=== PATIENT | female | born 1950 | race Caucasian/White ===

== ENCOUNTER 2017-04-24 15:00 | Inpatient (IN) | payer MEDICARE, BC ==
[2017-05-08] MEDS ORDERED: MECLIZINE 25 MG TABLET PO ONE (06:00)
[2017-05-08] MEDS ORDERED: CEFAZOLIN 2 Gram 2 GM/50 ML BAG IVPB ONE (06:00)
[2017-05-08] MEDS ORDERED: CELECOXIB 100 MG CAPSULE PO ONE (06:00)
[2017-05-08] MEDS ORDERED: VANCOMYCIN HCL 1,000 MG in 0.9 % SODIUM CHLORIDE 250ML 250 ML IVPB ONE (06:00)
[2017-05-08] MEDS ORDERED: FAMOTIDINE 20MG TABLET PO ONE (06:00)
[2017-05-08] MEDS ORDERED: METOCLOPRAMIDE 10 MG TABLET PO ONE (06:00)
[2017-05-08 08:05] LABS: ABO GROUP O; ANTIBODY SCREEN NEGATIVE (NEGATIVE); RH TYPE POSITIVE
[2017-05-08] MEDS ORDERED: TRANEXAMIC ACID 1,000 MG/10 ML ML IV ONE ×2 (09:19→14:00)
[2017-05-08] MEDS ORDERED: 0.9 % SODIUM CHLORIDE 10 ML VIAL IVP ONE (09:19)
[2017-05-08] MEDS ORDERED: BUPIVACAINE 0.5% W/EPI MPF 30 ML VIAL IVP ONE (09:19)
[2017-05-08] MEDS ORDERED: HYDROMORPHONE HCL 2 MG/ML VIAL IM PRN (11:25)
[2017-05-08] MEDS ORDERED: MAGNESIUM HYDROXIDE 30 ML UDC PO PRN (11:25)
[2017-05-08] MEDS ORDERED: AL HYDROX/MAG HYDROX 30ML UD PO PRN (11:25)
[2017-05-08] MEDS ORDERED: KETOROLAC 30 MG/ML VIAL IVP PRN ×2 (11:25)
[2017-05-08] MEDS ORDERED: ACETAMINOPHEN 325 MG TAB PO PRN (11:25)
[2017-05-08] MEDS ORDERED: BISACODYL 10 MG SUPP RC PRN (11:25)
[2017-05-08] MEDS ORDERED: DIPHENHYDRAMINE HCL 25 MG CAPSULE PO PRN (11:25)
[2017-05-08] MEDS ORDERED: HYDROMORPHONE HCL 1MG/ML **SYRINGE IM PRN (11:25)
[2017-05-08] MEDS ORDERED: HYDROCODONE/APAP 10/325 TABLET PO PRN (11:25)
[2017-05-08] MEDS ORDERED: NALOXONE 0.4 MG/1 ML VIAL IVP PRN (11:25)
[2017-05-08] MEDS ORDERED: ONDANSETRON HCL IV 4 MG/2 ML VIAL IVP PRN (11:25)
[2017-05-08] MEDS ORDERED: ACETAMINOPHEN W/ CODEINE 300MG/60MG TABLET PO PRN ×2 (11:25)
[2017-05-08] MEDS ORDERED: POTASSIUM CHLORIDE/D5-0.9%NACL 20 MEQ/1,000 ML BAG IV SCH (12:30)
[2017-05-08] MEDS ORDERED: EPHEDRINE SULFATE 50 MG/ML ML IV ONE (14:00)
[2017-05-08] MEDS ORDERED: PROPOFOL 10 MG/ML VIAL IV ONE (14:00)
[2017-05-08] MEDS ORDERED: MIDAZOLAM HCL 2MG/2ML VIAL IV ONE (14:00)
[2017-05-08] MEDS ORDERED: FENTANYL PF 100MCG/2ML VIAL IV ONE (14:00)
[2017-05-08] MEDS ORDERED: *PACU ONLY* KETAMINE HCL 10 MG/ML (20ML) VIAL IV ONE (14:00)
[2017-05-08] MEDS ORDERED: HYDROMORPHONE HCL 2 MG/ML VIAL IV ONE (14:00)
[2017-05-08] MEDS ORDERED: KETOROLAC 30 MG/ML VIAL IVP ONE (14:00)
[2017-05-08] MEDS ORDERED: PHENYLEPHRINE HCL 10 MG/ML VIAL IVP ONE (14:00)
[2017-05-08] MEDS: CEFAZOLIN 2 Gram 2 GM/50 ML BAG IVPB SCH (16:19)
--- NOTE | 2017-05-08 16:33 | Rehab Evaluation ---
Patient Information - Patient Information Diagnosis: L knee DJD Ordered Treatment: PT Evaluate and Treat Status: Initial Evaluation Surgery: Yes Date of Surgery: 05/08/17 Past Medical/Surgical Hx: PAST MEDICAL/SURGICAL HISTORY Surgery to Affected Area? No Recent Surgery? Past Surgical History 2004 left knee scope 1980 tubal ligation PMH - Respiratory Hx Respiratory Disorders No PMH - Cardiovascular Hx Cardiovascular Disorders Yes Hx Abnormal EKG Yes: Hx asymptomatic bradycardia Exercise Tolerance Fair PMH - Neuro Hx Neurological Disorders No PMH - GI Hx Gastrointestinal Disorders Yes Hx Gastroesophageal Reflux Yes: Controlled on Nexium Hx Hiatal Hernia Yes Hx Irritable Bowel Yes: with constipation. Controlled on Amitiza PMH - Hx Genitourinary Disorders Yes Hx Age of Menopause 50 Patient No Hx Bladder Problem Yes: OAB- on Tobiaz PMH - Endocrine Hx Endocrine Disorders Yes Hx Diabetes No Hx Thyroid Disease Yes: hypothyroid-on Synthroid PMH - Musculoskeletal Hx Musculoskeletal Disorders Yes Hx Arthritis Yes: Arthritis knees, shoulders, hands, generalized Hx Musculoskeletal Disease Yes: Restless leg syndrome controlled on Mirapex PMH - Psych Hx Psychiatric Problems Yes Hx Depression Yes: Controlled on Effexor PMH - Hematology/Oncology Hx Hematology/Oncology Yes Disorders Hx Anemia Yes: hgb 8.2 Hx Bruising Yes: Bruises very easily Premorbid Status: Detail (The patient was independent with ambulation.) Social History: Detail (The patient lives alone in a two story home with bathroom and bedroom on the first floor. The patient's sister is staying with her while she recovers from surgery. The patient's bathroom is equipped with a walk in shower with a tub seat and grab bars, and a toilet with a riser seat. The patient has a standard walker) Precautions: [place], Other (WBAT on the L LE.) - Time With Patient Total Time Spent With Patient (Min): 30 Treatment Procedures: Detail (Initial Evaluation, Gait training and review of HEP: the patient completed ankle pumps, quad sets , hamstring sets, gluteal sets all x 5 reps, SLR and heel slides x 3 reps.) Subjective Information - Subjective Information Per Patient (The patient has no complaints of L knee pain.) Objective Data - Mental Status Patient Orientation: Oriented x3 - Visual Perception Appears within normal limits for therapeutic activities - ROM Not within normal limits (The patient's L knee extension was 0 degrees and flexion aproximately 80 degrees.) - Strength/Tone Not within normal limits (The patient's UE strength was generally 4+to 5/5 throughout. The patient's R LE strength was 4+ to 5/5. The patient's L LE strength was not formally tested secondary to S/P surgery, however her strength was functional ie: she was able to lift L LE SLR.) - Bed Mobility Independent (The patient was independent with supine to and from sit transfer, hooking R LE under L LE and with scooting up in bed.) - Transfers Independent (The patient was independent with sit to and from stand transfer and toilet transfer.) - Balance Balance Sitting: Good Balance Standing: Good - Gait Detail (The patient ambulated with standard walker a distance of 11 feet x 2 WBAT on the L LE with CG for safety and verbal cues for proper technique of walker use.) Therapy Assessment - Therapy Assessment Detail (The patient was independent with bed mobility transfer and HEP. Feel the patient will progress well with ambulation on stairs. Anticipate the patient will meet PT inpatient goals in 1 to 2 PT sessions.) Problem List - Problem List Physical Therapy Problem List: Detail (1) Decreased L knee AROM and decreased strength as to be expected following TKA. 2) CG with ambulation, inability to ambulate on stairs.) Goals - Goals Physical Therapy Goals: 1)The patient will be independent with ambulation with assistive device on levels and stairs WBAT on the L LE. 2) Independent with HEP progression. Prognosis - Prognosis Good Plan - Plan Physical Therapy Plan: PT 1 to 2 times a day for gait training until all PT inpatient goals have been met.
[2017-05-08] MEDS: PRAMIPEXOLE DI-HCL 0.25 MG TABLET PO SCH ×2 (17:47→22:41)
[2017-05-08] MEDS: DOCUSATE SODIUM 100 MG CAPSULE PO SCH (22:41)
[2017-05-08] MEDS: AMITIZA 8 MCG PO SCH (22:42)
[2017-05-08] MEDS: PATIENT OWN MED: ATORVASTATIN 40 MG PO SCH (22:42)
[2017-05-08] MEDS: VENLAFAXINE 75 MG PO SCH (22:42)
[2017-05-08] MEDS: ZOLPIDEM TARTRATE 5 MG TABLET PO PRN (22:42)
[2017-05-09] MEDS: CEFAZOLIN 2 Gram 2 GM/50 ML BAG IVPB SCH ×2 (00:26→10:29)
[2017-05-09] MEDS: HYDROCODONE/APAP 10/325 TABLET PO PRN ×4 (03:54→20:32)
[2017-05-09] MEDS: PATIENT OWN MED: LEVOTHYROXINE 25 MCG PO SCH (06:55)
[2017-05-09] MEDS: ESOMEPRAZOLE 20 MG PO SCH (06:55)
[2017-05-09 06:58] LABS: HEMATOCRIT 21.9 % (35.0-47.0)
[2017-05-09 07:11] LABS: BLOOD UREA NITROGEN 17 mg/dL (8-23); CREATININE 0.8 mg/dL (0.5-0.9); EST GLOMERULAR FILTRATION RATE > 60 mL/min; GLUCOSE,RANDOM 102 mg/dL (74-109)
[2017-05-09 07:31] LABS: IMMED. SPIN CROSSMATCH COMPATIBLE
--- NOTE | 2017-05-09 08:09 | Operative Note ---
DATE: 05/08/2017. PREOPERATIVE DIAGNOSIS: End-stage arthrosis of the left knee. POSTOPERATIVE DIAGNOSIS: End-stage arthrosis of the left knee. PROCEDURE: Cemented left total knee arthroplasty using Iyer [employer] Nephew Kianna with two components with a size 3 Oxinium femur, size 3 stemmed tibia base plate, a 9.0 mm lift Highly Crosslinked tibial insert, and a size 32 all- plastic patella. STAFF SURGEON: Leeroy Villafana M.D. ANESTHESIA: Spinal. PREPARATION: ChloraPrep. INDIVIDUAL CONSIDERATIONS: None. PROCEDURE: The patient was taken to the operating room and placed supine on the operating table. She had the successful induction of a spinal anesthetic. Her left lower extremity was prepped and draped in the usual fashion. The limb was elevated and the tourniquet was inflated to 250 mmHg. The patient had a midline approach to the knee. Sharp dissection was carried down through the skin and subcutaneous tissue. The small veins were coagulated with a Bovie. The medial arthrotomy was performed. The patella was everted and the knee was flexed. She had [id number] contact with bone loss medially and in the patellofemoral compartments. The fat pad was resected and the ACL was sacrificed. Provisional anterior meniscectomies were performed, and the capsule was released from the medial proximal tibia. Initial femoral marine pilot hole was then made freehand. Intramedullary femoral cutting jig was placed. It was cut in 7.0 degrees of valgus, adjusted for rotation, and secured with pins. The initial transverse cut was made. Skin guide was placed at the anterior and posterior marine pilot holes, and it was found that a size 3 would be appropriate. In order to get it to fit, I needed to translate it anteriorly 2.0 mm. I did this with the anterior translation block. The anterior and posterior cuts were made followed by chamfer cuts, and osteophytes were removed. A size 4 trial was placed and was found to fit well. The tibia was brought forward, and the remainder of the meniscal remnants were removed with a Bovie. The extra-articular tibia cutting jig was placed, and it was cut in neutral with a 3-degree AP slope. Care was taken to adjust the rotation and flexion using the extra-articular alignment guide and Bovie landmarks. It was set for a 9.0-mm resection and keyed off the high lateral side and secured with pins, and then cautery of the tibia. Care was taken to preserve the PCL insertion on the tibia. After removing osteophytes, I was able to fit a size 3. The size 3 was adjusted for rotation and secured with pins. With a 9.0-mm trial as a femoral trial, there was excellent motion and stability. Ligamentous balance, rotation, alignment, and patellofemoral tracking at this point were even normal. Femoral marine pilot holes were impacted, and the triflange tibial stamp was impacted, and these trial components were removed. I removed roughly 9.0 mm of bone off the patella which had about 21 to 22 mm of bone. I then was able to fit a 32 patella, and three marine pilot holes were then drilled. The knee was then thoroughly irrigated out with pulsatile Betadine and saline to remove any visual or palpable debris. The tourniquet was let down, bleeders were coagulated posteriorly, and hemostasis was obtained. The tourniquet was then placed back up again. Again, after thorough irrigation, the bony surfaces were dried. A size [address] was cemented into place, followed by impaction of a 9.0 mm lift tibial insert, followed by cementing of a size 3 Oxinium femur followed by cementing of a 32 mm all-plastic patella. Implant surfaces were compressed and excess cement was removed. After the cement had set, there were excellent motion and stability. Ligamentous balance, rotation alignment, and patellofemoral tracking were normal. The tourniquet was let down and hemostasis was obtained with the Bovie. After irrigation, the capsule was then closed with running #2 Quill, subcu was closed with running #0 Quill in layers, and the skin was closed with rubia. Prior to closure, I did infiltrate the skin and periosteum with 30 cc of 0.5% Marcaine with epinephrin. After closure, I then mixed 1.0 gm of tranexamic acid with 30 cc of saline and injected this into the knee. She did receive 1.0 gm of tranexamic acid IV preoperatively. The patient tolerated the procedure well. Needle and sponge counts were correct. Estimated blood loss was less than 50 cc. She was taken back to Recovery in good condition. There were no complications. cc: Chay Neville M.D. BOBBI
[2017-05-09] MEDS: FERROUS SULFATE 325 MG TAB PO SCH (09:32)
[2017-05-09] MEDS: DOCUSATE SODIUM 100 MG CAPSULE PO SCH ×2 (09:32→22:06)
[2017-05-09] MEDS: RIVAROXABAN 10 MG TABLET PO SCH (09:32)
[2017-05-09] MEDS: ASPIRIN 81 MG TABEC PO SCH (09:32)
[2017-05-09] MEDS: TOVIAZ 8 MG PO SCH (09:35)
[2017-05-09] MEDS: VENLAFAXINE 75 MG PO SCH ×2 (09:35→22:07)
[2017-05-09] MEDS: AMITIZA 8 MCG PO SCH ×2 (09:35→22:07)
[2017-05-09 10:27] LABS: IMMED. SPIN CROSSMATCH COMPATIBLE
[2017-05-09 11:51] LABS: % SATURATION 4 % (20-50)
--- NOTE | 2017-05-09 12:07 | Physical Therapy Tx Note ---
Physical Therapy Tx Note - Treatment Note Tolerated: Good Total Time Spent With Patient: 20 Physical Therapy Tx Note: Detail (The patient was up in a chair when PT arrived. The patient ambulated 80 feet x 1 with standard walker, WBAT on the L LE with supervision for safety only. The patient requested to return to bed. The patient was independent with supine to and from sit transfer. Ice was replaced on the patient's knee, call light was within reach.) Physical Therapy Problem List: Detail (1) Decreased L knee AROM and decreased strength as to be expected following TKA. 2) CG with ambulation, inability to ambulate on stairs.) Physical Therapy Goals: 1)The patient will be independent with ambulation with assistive device on levels and stairs WBAT on the L LE. 2) Independent with HEP progression. Physical Therapy Plan: PT 1 to 2 times a day for gait training until all PT inpatient goals have been met.
[2017-05-09] MEDS: TRAMADOL HCL 50 MG TABLET PO PRN (13:48)
--- NOTE | 2017-05-09 14:33 | Rehab Evaluation ---
Patient Information - Patient Information Diagnosis: L knee DJD Ordered Treatment: OT Evaluate and Treat Status: Initial Evaluation Surgery: Yes Date of Surgery: 05/08/17 Past Medical/Surgical Hx: PAST MEDICAL/SURGICAL HISTORY Surgery to Affected Area? No Recent Surgery? Past Surgical History 2004 left knee scope 1980 tubal ligation PMH - Respiratory Hx Respiratory Disorders No PMH - Cardiovascular Hx Cardiovascular Disorders Yes Hx Abnormal EKG Yes: Hx asymptomatic bradycardia Exercise Tolerance Fair PMH - Neuro Hx Neurological Disorders No PMH - GI Hx Gastrointestinal Disorders Yes Hx Gastroesophageal Reflux Yes: Controlled on Nexium Hx Hiatal Hernia Yes Hx Irritable Bowel Yes: with constipation. Controlled on Amitiza PMH - Hx Genitourinary Disorders Yes Hx Age of Menopause 50 Patient No Hx Bladder Problem Yes: OAB- on Tobiaz PMH - Endocrine Hx Endocrine Disorders Yes Hx Diabetes No Hx Thyroid Disease Yes: hypothyroid-on Synthroid PMH - Musculoskeletal Hx Musculoskeletal Disorders Yes Hx Arthritis Yes: Arthritis knees, shoulders, hands, generalized Hx Musculoskeletal Disease Yes: Restless leg syndrome controlled on Mirapex PMH - Psych Hx Psychiatric Problems Yes Hx Depression Yes: Controlled on Effexor PMH - Hematology/Oncology Hx Hematology/Oncology Yes Disorders Hx Anemia Yes: hgb 8.2 Hx Bruising Yes: Bruises very easily Premorbid Status: Detail (The patient was independent with ambulation, and all ADLs/IADLs.) Social History: Detail (The patient lives alone in a two story home with bathroom and bedroom on the first floor. The patient's sister is staying with her while she recovers from surgery. The patient's bathroom is equipped with a tub/shower combo with a tub seat and grab bars, and a toilet with a riser seat. Pt sits to shower. The patient has a standard walker.) Precautions: [place], Other (WBAT on the L LE.) - Time With Patient Total Time Spent With Patient (Min): 25 Treatment Procedures: Detail (Eval low OT) Subjective Information - Subjective Information Per Patient Objective Data - Pain Pain Present: Yes (L knee) Pain Intensity: 3 Pain Scale Used: Numeric (1 - 10) - Mental Status Patient Orientation: Oriented x3 - Visual Perception Appears within normal limits for therapeutic activities (wears glasses.) - ROM Within normal limits (BUE's) - Strength/Tone Within normal limits (WNL BUE's pt grossly 4+ to 5/5) - Coordination Appears within normal limits for therapeutic activities - Bed Mobility Independent - Transfers Independent - Gait Detail (SBA w/ 2WW to go from head of bed to foot of bed and back to head of bed.) - ADL's/IADL's Detail (Pt ind. w/ bra and LS shirt don sitting EOB. Educated and demo'd understanding of drsg techniques. Pt required max A to thread underwear & pants over feet then Ind. to pull above knee and up over hips in standing. Pt unable to reach to thread pants 2^ pain and pants getting caught on equipment. Pt also experienced increased wheezing throughout ADL session requiring 3 RBs. Pt states that her sister will assist her with dressing until she can do it independenly. Discussed use of leasing property manager should pt cont to struggle with drsg while at home.) Therapy Assessment - Therapy Assessment Detail (Pt was instructed and demo'd understanding of drsg techniques. She was ind. w/ bed mob. and t/f's and was SBA for ambulation within room. But did show increased "wheezing" during ADL session requiring 3 RBs to perform breathing techniques. Pt required assistance for LB drsg but states that sister will be able to assist her with drsg. Also, discussed use of leasing property manager for LB drsg should this cont to be a problem. Pt will follow-up with home OT.) Problem List - Problem List Physical Therapy Problem List: Detail (1) Decreased L knee AROM and decreased strength as to be expected following TKA. 2) CG with ambulation, inability to ambulate on stairs.) Goals - Goals Physical Therapy Goals: 1)The patient will be independent with ambulation with assistive device on levels and stairs WBAT on the L LE. 2) Independent with HEP progression. Prognosis - Prognosis Good Plan - Plan Physical Therapy Plan: PT 1 to 2 times a day for gait training until all PT inpatient goals have been met. Occupational Therapy Plan: Do not anticipate patient needing further inpatient OT but recommend her to follow up on drsg techniques with home OT.
--- NOTE | 2017-05-09 15:27 | Physical Therapy Tx Note ---
Physical Therapy Tx Note - Treatment Note Tolerated: Good Total Time Spent With Patient: 15 Physical Therapy Tx Note: Detail (Patient states 7/10 pain in left knee. Patient declined ambulation and stair climbing due to sitting up in chair for a while and has been walking a lot. Patient performed the following exercises: SLR x10, heel slides x2, ankle pumps x10, ankle circles x10, quad sets x10, glut squeezes x10, hamstring sets x10, and SAQ x10. Patient tolerated treatment well. Patient was left supine in bed with cryo and call light within reach.) Physical Therapy Problem List: Detail (1) Decreased L knee AROM and decreased strength as to be expected following TKA. 2) CG with ambulation, inability to ambulate on stairs.) Physical Therapy Goals: 1)The patient will be independent with ambulation with assistive device on levels and stairs WBAT on the L LE. 2) Independent with HEP progression. Prognosis: Good Physical Therapy Plan: PT 1 to 2 times a day for gait training until all PT inpatient goals have been met.
[2017-05-09] MEDS: PRAMIPEXOLE DI-HCL 0.25 MG TABLET PO SCH ×2 (17:45→22:06)
[2017-05-09] MEDS: ZOLPIDEM TARTRATE 5 MG TABLET PO PRN (22:04)
[2017-05-09] MEDS: PATIENT OWN MED: ATORVASTATIN 40 MG PO SCH (22:07)
[2017-05-10] MEDS: TRAMADOL HCL 50 MG TABLET PO PRN (02:15)
[2017-05-10 06:19] LABS: HEMATOCRIT 28.1 % (35.0-47.0); HEMOGLOBIN 8.6 gm/dl (11.6-16.0)
[2017-05-10 06:38] LABS: BLOOD UREA NITROGEN 13 mg/dL (8-23); CREATININE 0.6 mg/dL (0.5-0.9); EST GLOMERULAR FILTRATION RATE > 60 mL/min; GLUCOSE,RANDOM 99 mg/dL (74-109)
[2017-05-10] MEDS: ESOMEPRAZOLE 20 MG PO SCH (06:56)
[2017-05-10] MEDS: PATIENT OWN MED: LEVOTHYROXINE 25 MCG PO SCH (06:57)
[2017-05-10] MEDS: DOCUSATE SODIUM 100 MG CAPSULE PO SCH (09:33)
[2017-05-10] MEDS: ASPIRIN 81 MG TABEC PO SCH (09:33)
[2017-05-10] MEDS: AMITIZA 8 MCG PO SCH (09:33)
[2017-05-10] MEDS: RIVAROXABAN 10 MG TABLET PO SCH (09:33)
[2017-05-10] MEDS: FERROUS SULFATE 325 MG TAB PO SCH (09:33)
[2017-05-10] MEDS: TOVIAZ 8 MG PO SCH (09:34)
[2017-05-10] MEDS: VENLAFAXINE 75 MG PO SCH (09:34)
--- NOTE | 2017-05-10 11:05 | Physical Therapy Tx Note ---
Physical Therapy Tx Note - Treatment Note Tolerated: Good Total Time Spent With Patient: 30 Physical Therapy Tx Note: Detail (Patient was reclined in bed upon MAKEUP SALES ADVISOR arrival. Patient states 7/10 pain in left knee. Patient transferred supine to sit independently. Patient transferred sit to and from stand SBA x1. Patient displays some loss of balance with turning. Patient ambulated 40 feet x2 with standard walker CGA x1. Patient required cueing to bend left knee with ambulation. Patient ascended and descended 6 steps CGA x1. Patient required verbal cueing with which LE to lead with steps. Patient performed the following exercises x10 reps each seated on edge of bed: quad sets, seated heel slides, LAQ, hamstring sets, seated heel raises, and seated toe raises. Patient transferred sit to supine independently. Patient scooted up in bed independently. Patient reports fatigued after treatment. Patient was left reclined in bed with cryo, intermittent pneumatic compression, and call light within reach. Patient passed all PT skills and is discharged from inpatient physical therapy at this time.) Physical Therapy Problem List: Detail (1) Decreased L knee AROM and decreased strength as to be expected following TKA. 2) CG with ambulation, inability to ambulate on stairs.) Physical Therapy Goals: 1)The patient will be independent with ambulation with assistive device on levels and stairs WBAT on the L LE. 2) Independent with HEP progression. Prognosis: Good Physical Therapy Plan: PT 1 to 2 times a day for gait training until all PT inpatient goals have been met.
[2017-05-10] MEDS: HYDROCODONE/APAP 10/325 TABLET PO PRN (12:47)
--- NOTE | 2017-05-10 17:20 | Discharge Summary ---
DATE OF ADMISSION: 05/08/17 DATE OF DISCHARGE: 05/10/17 DATE OF SURGERY: 05/08/17 HISTORY: Che is a delightful 67-year-old female who presents with end-stage arthrosis of the right knee. She was admitted after right total knee arthroplasty. Postoperatively, she did well. She has chronic iron deficiency anemia and her preoperative hemoglobin was 8.3. Postoperative day #1, her hemoglobin was in the low 6-range so she was transfused two units of blood. Her discharge hemoglobin was 8.6. Her hospital course was otherwise unremarkable. She did quite well. At the time of this dictation, iron and iron-binding capacity and stool guaiacs were pending. DISCHARGE INSTRUCTIONS: The plan is to discharge her home in the care of her family. Home PT and Visiting Nurse have been arranged. She will be on Xarelto for DVT prophylaxis and she will take Samaria for pain. She has an appointment to see Dr. Jonny Neville on May 22 at 10 a.m. to get evaluated for her chronic iron deficiency anemia. She will see me back in my office in four weeks. The Visiting Nurse will remove her sutures in two weeks. FINAL DIAGNOSIS/PRIMARY DIAGNOSIS: END-STAGE ARTHROSIS OF THE RIGHT KNEE. SECONDARY DIAGNOSES: ANEMIA SECONDARY TO ACUTE OPERATIVE BLOOD LOSS BUT PREDOMINANTLY SECONDARY TO CHRONIC IRON DEFICIENCY ANEMIA. OPERATIONS AND PROCEDURES: CEMENTED RIGHT TOTAL KNEE ARTHROPLASTY. DISCHARGE CONDITION: GOOD. cc: Dr. Jonny Neville JOB NUMBER: [id number] MTDD
== END 2017-05-10 13:40 | disposition home health service (06) | DRG 470 ==
LOC: MEDSURG 05-08 07:05
PROVIDERS: ADMIT Orthopaedic Surgery; ATTEND Orthopaedic Surgery
PROC: 30233N1 Transfusion of Nonautologous Red Blood Cells into Peripheral Vein, Percutaneous Approach (ICD-10-PCS; 2017-05-08)
PROC: 0SRD0J9 Replacement of Left Knee Joint with Synthetic Substitute, Cemented, Open Approach (ICD-10-PCS; principal; 2017-05-08 09:00)
DX: M17.12 Unilateral primary osteoarthritis, left knee (principal); D62 Acute posthemorrhagic anemia; D50.9 Iron deficiency anemia, unspecified; N32.81 Overactive bladder; M85.80 Other specified disorders of bone density and structure, unspecified site; I10 Essential (primary) hypertension; E03.9 Hypothyroidism, unspecified; K58.9 Irritable bowel syndrome, unspecified; G25.81 Restless legs syndrome; E78.00 Pure hypercholesterolemia, unspecified
CPT/HCPCS: 36430; 80048; 83550; 85014; 85018; 86850; 86900; 86901; 97110; 97165; 97530; 99232; J1885; J2370; J3480; J7050

== ENCOUNTER 2018-02-26 09:56 | Day surgery (SDC) | payer MEDICARE, BC ==
[~2018-02-26 09:56] MED LIST: CEFAZOLIN 2 Gram 2 GM/50 ML BAG IVPB ONE; CELECOXIB 100 MG CAPSULE PO ONE; FAMOTIDINE 20MG TABLET PO ONE; MECLIZINE 25 MG TABLET PO ONE; METOCLOPRAMIDE 10 MG TABLET PO ONE; VANCOMYCIN HCL 1,000 MG in DEXTROSE 5 % IN WATER 250 ML IVPB ONE
[2018-02-26] MEDS ORDERED: PROPOFOL 10 MG/ML VIAL IV ONE (09:57)
[2018-02-26] MEDS ORDERED: SEVOFLURANE 250 ML INH ONE (09:57)
[2018-02-26] MEDS ORDERED: *PACU ONLY* KETAMINE HCL 10 MG/ML (20ML) VIAL IV ONE (09:57)
[2018-02-26] MEDS ORDERED: MIDAZOLAM HCL 2MG/2ML VIAL IV ONE (09:57)
[2018-02-26] MEDS ORDERED: HYDROMORPHONE HCL 2 MG/ML VIAL IV ONE (09:57)
[2018-02-26] MEDS ORDERED: TRANEXAMIC ACID 1,000 MG/10 ML ML IV ONE ×2 (09:57)
[2018-02-26] MEDS ORDERED: BUPIVACAINE 0.5% W/EPI MPF 30 ML VIAL IVP ONE (09:57)
[2018-02-26] MEDS ORDERED: 0.9 % SODIUM CHLORIDE 10 ML VIAL IVP ONE (09:57)
[2018-02-26 11:05] LABS: ABO GROUP O; ANTIBODY SCREEN NEGATIVE (NEGATIVE); RH TYPE POSITIVE
[2018-02-26] MEDS ORDERED: DIPHENHYDRAMINE HCL 25 MG CAPSULE PO PRN (15:57)
[2018-02-26] MEDS ORDERED: AL HYDROX/MAG HYDROX 30ML UD PO PRN (15:57)
[2018-02-26] MEDS ORDERED: ACETAMINOPHEN 325 MG TAB PO PRN (15:57)
[2018-02-26] MEDS ORDERED: HYDROMORPHONE HCL 2 MG/ML VIAL IM PRN (15:57)
[2018-02-26] MEDS ORDERED: HYDROCODONE/APAP 10/325 TABLET PO PRN (15:57)
[2018-02-26] MEDS ORDERED: NALOXONE 0.4 MG/1 ML VIAL IVP PRN (15:57)
[2018-02-26] MEDS ORDERED: ONDANSETRON HCL IV 4 MG/2 ML VIAL IVP PRN (15:57)
[2018-02-26] MEDS ORDERED: KETOROLAC 30 MG/ML VIAL IVP PRN ×2 (15:57)
[2018-02-26] MEDS ORDERED: MAGNESIUM HYDROXIDE 30 ML UDC PO PRN (15:57)
[2018-02-26] MEDS ORDERED: BISACODYL 10 MG SUPP RC PRN (15:57)
[2018-02-26] MEDS ORDERED: ACETAMINOPHEN W/ CODEINE 300MG/60MG TABLET PO PRN ×2 (15:57)
[2018-02-26] MEDS ORDERED: ZOLPIDEM TARTRATE 5 MG TABLET PO PRN (15:57)
[2018-02-26] MEDS ORDERED: TRAMADOL HCL 50 MG TABLET PO PRN (15:57)
--- NOTE | 2018-02-26 17:17 | Operative Note ---
DATE: 02/26/2018 PREOPERATIVE DIAGNOSIS: END-STAGE ARTHROSIS OF THE RIGHT KNEE. POSTOPERATIVE DIAGNOSIS: END-STAGE ARTHROSIS OF THE RIGHT KNEE. PROCEDURE: CEMENTED RIGHT TOTAL KNEE ARTHROPLASTY USING FABIAN & NEPHEW CHINO II COMPONENTS, WITH A SIZE 3 COBALT CHROME FEMUR, A SIZE 2 STEMMED TIBIAL BASEPLATE, A 9 MM LIPPED TIBIAL INSERT, AND A 32 MM ALL-PLASTIC PATELLA. STAFF SURGEON: DEEJAY RAMIREZ M.D. ANESTHESIA: SPINAL. PREPARATION: CHLORAPREP. INDIVIDUAL CONSIDERATIONS: NONE. PROCEDURE: The patient was taken to the Operating Room and placed supine on the operating table. She had a successful induction of a spinal anesthetic. Her right lower extremity was prepped and draped in the usual fashion. The patient had a midline approach to the knee. The limb was elevated and the tourniquet was inflated to 250 mmHg. Sharp dissection carried down through the skin and subcutaneous tissue. Small veins were coagulated with the Bovie. A medial arthrotomy was performed. The patella was everted and the knee was flexed. She had basically [id number] contact of the medial and patellofemoral compartments with varus deformity and large osteophytes. The fat pad was resected, ACL was sacrificed, provisional anterior meniscectomies were performed , and the capsule was released from the medial proximal tibia. The initial femoral drone pilot hole was then made free hand. The intramedullary femoral cutting jig was placed. It was cut in 7.0 degrees of valgus and adjusted for rotation and secured with pins for a 10 mm resection. The initial transverse cut was then made. Skin guide was placed in the anterior and posterior drone pilot holes and it was found that a size 3 would be appropriate. The anterior and posterior cuts were then made, osteophytes were removed, and a size 3 trial was placed and found to fit well. The tibia was brought forward and the remainder of the meniscal remnants were removed with a Bovie. The extraarticular tibial cutting jig was placed. It was cut in neutral with a 3-degree AP slope. Care was taken to preserve the PCL insertion on the tibia and it was set for a 9 mm resection, keyed off the high lateral side and secured with pins. After making a cut, large medial osteophytes were removed and I could only size it to a size 2. It was adjusted for rotation with the trial and secured with pins. With a 9 mm trial and the femoral trial, there was excellent motion and stability. Ligamentous balance, rotation, and alignment were thought to be normal. The triflange tibial stamp was impacted, the femoral drone pilot holes were impacted, and these trial components were removed. The patient had bone loss on the patella and I compensated for bone loss, probably took about 6 or 7 mm leaving 12 to 13 mm, which I thought was sufficient and I did this with a freehand cut. I was able to fit a 32 patella and the three drone pilot holes were drilled. The tourniquet was let down briefly to get bleeders posteriorly then placed back up again. The knee was then thoroughly irrigated out with pulsatile Betadine and saline to remove any visual or palpable debris. Bony surfaces were dried. The size 2 stemmed tibial baseplate was cemented into place followed by impaction of the 9 mm lipped tibial insert followed by cementing in a size 3 [place] femur, followed by cementing in the 32 mm all-plastic patella. Implant surfaces were compressed , excess cement was removed and after the cement had set, there was excellent motion and stability. Ligamentous balance, rotation, alignment, and patellofemoral tracking were normal. No lateral release was required. The tourniquet was again let down and hemostasis was obtained with a Bovie and then again, final irrigation. The capsule was then closed with a running #2 quill, subcut was closed in layers with running 0 quill, and the skin was closed with rubia. A sterile Bulkee compressive DELMI-type dressing was applied. Prior to closure, I did infiltrate the periosteum, skin, and subcutaneous tissue with 30 mL of 0.5% Marcaine with Epinephrine and then prior to the dressing I mixed 1 gram of Tranexamic acid with 30 mL of saline and injected it into the knee. She did receive 1 gram IV prior. The patient tolerated the procedure well. Needle and sponge counts were correct, estimated blood loss was minimal, and She was taken back to Recovery in good condition. There were no complications. JOB NUMBER: [id number] [facility]
[2018-02-26] MEDS: HYDROCODONE/APAP 10/325 TABLET PO PRN ×2 (18:11→22:29)
[2018-02-26] MEDS: POTASSIUM CHLORIDE/D5-0.9%NACL 20 MEQ/1,000 ML BAG IV SCH (18:12)
[2018-02-26] MEDS ORDERED: PATIENT OWN MED: TRAZODONE 50 MG PO SCH (22:00)
[2018-02-26] MEDS ORDERED: PATIENT OWN MED: ATORVASTATIN 40 MG PO SCH (22:00)
[2018-02-26] MEDS ORDERED: PRAMIPEXOLE DI-HCL 0.25 MG TABLET PO SCH (22:00)
[2018-02-26] MEDS: DOCUSATE SODIUM 100 MG CAPSULE PO SCH (22:15)
[2018-02-26] MEDS: CEFAZOLIN 2 Gram 2 GM/50 ML BAG IVPB SCH (22:15)
[2018-02-26] MEDS: AMITIZA 8 MCG PO SCH (22:24)
[2018-02-26] MEDS: PATIENT OWN MED: VENLAFAXINE ER 75 MG PO SCH (22:26)
[2018-02-27] MEDS: POTASSIUM CHLORIDE/D5-0.9%NACL 20 MEQ/1,000 ML BAG IV SCH ×2 (01:52→10:40)
[2018-02-27] MEDS: CEFAZOLIN 2 Gram 2 GM/50 ML BAG IVPB SCH ×2 (06:10→14:44)
[2018-02-27 06:58] LABS: HEMATOCRIT 30.9 % (35.0-47.0); HEMOGLOBIN 9.4 gm/dl (11.6-16.0)
[2018-02-27] MEDS ORDERED: ESOMEPRAZOLE 20 MG PO SCH (07:00)
[2018-02-27] MEDS ORDERED: SYNTHROID 25 MCG PO SCH (07:00)
[2018-02-27 07:08] LABS: BLOOD UREA NITROGEN 10 mg/dL (8-23); CREATININE 0.6 mg/dL (0.5-0.9); EST GLOMERULAR FILTRATION RATE > 60 mL/min; GLUCOSE,RANDOM 150 mg/dL (74-109)
[2018-02-27] MEDS: DOCUSATE SODIUM 100 MG CAPSULE PO SCH (09:24)
[2018-02-27] MEDS: HYDROCODONE/APAP 10/325 TABLET PO PRN ×2 (09:24→14:44)
--- NOTE | 2018-02-27 09:40 | Rehab Evaluation ---
Patient Information - Patient Information Diagnosis: OA R knee Ordered Treatment: PT Evaluate and Treat Status: Initial Evaluation Surgery: Yes (R TKA) Date of Surgery: 02/26/18 Past Medical/Surgical Hx: PAST MEDICAL/SURGICAL HISTORY Past Surgical History KA -2016 2004 left knee scope 1980 tubal ligation PMH - Respiratory Hx Respiratory Disorders No PMH - Cardiovascular Hx Cardiovascular Disorders Yes Hx Abnormal EKG Yes: Hx asymptomatic bradycardia Exercise Tolerance Good PMH - Neuro Hx Neurological Disorders No PMH - GI Hx Gastrointestinal Disorders Yes Hx Gastroesophageal Reflux Yes: Controlled on Nexium Hx Hiatal Hernia Yes Hx Irritable Bowel Yes: with constipation. Controlled on Amitiza PMH - Hx Genitourinary Disorders Yes Hx Age of Menopause 50 Hx Bladder Problem Yes: OAB- on Tobiaz PMH - Endocrine Hx Endocrine Disorders Yes Hx Diabetes No Hx Thyroid Disease Yes: hypothyroid-on Synthroid PMH - Musculoskeletal Hx Musculoskeletal Disorders Yes Hx Arthritis Yes: Arthritis knees, shoulders, hands, generalized Hx Musculoskeletal Disease Yes: Restless leg syndrome controlled on Mirapex PMH - Psych Hx Psychiatric Problems Yes Hx Depression Yes: Controlled on Effexor PMH - Hematology/Oncology Hx Hematology/Oncology Yes Disorders Hx Anemia Yes: HGB 10.9 Hx Bruising Yes: Bruises very easily Premorbid Status: Detail (The patient was independent with ambulation prior to surgery.) Social History: Detail (The patient lives alone in a 2 story house, but does not need to use 2nd floor. The patient's daughter will be staying with patient for the first 3 weeks. The patient's house enterance has 5 steps with one handrail. The patient's bathroom is equipped with a step in bathtub with a seat ,hand held shower and grab bars and and elevated toilet with a riser seat. 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 The patient has a standard walker and cane.) Precautions: [place], Fall, Other (WBAT on the R LE.) - Time With Patient Total Time Spent With Patient (Min): 30 Treatment Procedures: Detail (Initial Evaluation) Subjective Information - Subjective Information Per Patient (The patient had complaints of R knee pain level 5 using 0-10 pain scale.) Objective Data - Mental Status Patient Orientation: Oriented x3 - Visual Perception Appears within normal limits for therapeutic activities - ROM Not within normal limits (The patient's R knee AROM was limited s/p surgery. All other LE AROM was WNL,) - Strength/Tone Not within normal limits (The patient 's R LE strength was not tested due s/p surgery, however strength is functional ie: patient is able to complete a SLR. L LE strength was generally 4+ to 5/5.) - Bed Mobility Independent (The patient was independent with supine to and from sit transfer with head of the bed elevated. The patient was independent with scooting up in bed.) - Transfers Independent (The patient was independent with sit to and from stand transfer.) - Balance Balance Sitting: Good Balance Standing: Good - Sensation Intact - Gait Detail (The patient ambulated with standard walker independently with WBAT on the R LE a distance of 80 feet x 1.) Therapy Assessment - Therapy Assessment Detail (The patient was independent with bed mobility, transfers and ambulation on level surfaces. The patient declined ambulation on stairs this am due to increased pain level.) Patient Education - Patient Education Teaching Topic: Exercise/Activity (The patient completed the following HEP of TKA exercises with correct technique : supine heel slides, quad sets, gluteal sets, hamstring sets, SLR and ankle pumps.) Response: Return Demonstration Teaching Method: Demonstration, Handout Teaching Recipient: Patient Barriers To Learning: Age Related Problem List - Problem List Physical Therapy Problem List: Detail (1) Decrease R knee AROM and strength as to be expected following surgery 2) Nonambulatory on stairs) Goals - Goals Physical Therapy Goals: 1) The patient will amublate on stairs using proper technique with supervision for safety Prognosis - Prognosis Good Plan - Plan Physical Therapy Plan: PT for 1 more session this pm for gait training on the stairs.
[2018-02-27] MEDS ORDERED: ASPIRIN 81 MG TABEC PO SCH (10:00)
[2018-02-27] MEDS ORDERED: RIVAROXABAN 10 MG TABLET PO SCH (10:00)
[2018-02-27] MEDS ORDERED: PATIENT OWN MED: MYBETRIQ 50 MG PO SCH (10:00)
[2018-02-27] MEDS ORDERED: FERROUS SULFATE 325 MG TAB PO SCH (10:00)
[2018-02-27] MEDS: AMITIZA 8 MCG PO SCH (10:39)
[2018-02-27] MEDS: PATIENT OWN MED: VENLAFAXINE ER 75 MG PO SCH (10:40)
--- NOTE | 2018-02-27 13:10 | Physical Therapy Tx Note ---
Physical Therapy Tx Note - Treatment Note Tolerated: Good Total Time Spent With Patient: 15 Physical Therapy Tx Note: Detail (The patient was up in bed when PT arrived. The patient independently completed supine to and from sit transfer. The patient ambulated on 3 steps with use of railing and folded walker with supervision for safety only and using proper technique. All inpatient PT goals have been completed.) Physical Therapy Problem List: Detail (1) Decrease R knee AROM and strength as to be expected following surgery 2) Nonambulatory on stairs) Physical Therapy Goals: 1) The patient will amublate on stairs using proper technique with supervision for safety (Goal Met) Physical Therapy Plan: All inpatient PT goals have been completed. The patient is to receive Home PT services.
--- NOTE | 2018-02-27 15:40 | Rehab Evaluation ---
Patient Information - Patient Information Diagnosis: OA R knee Ordered Treatment: OT Evaluate and Treat Status: Initial Evaluation Surgery: Yes (R TKA) Date of Surgery: 02/26/18 Past Medical/Surgical Hx: PAST MEDICAL/SURGICAL HISTORY Past Surgical History KA -2016 2004 left knee scope 1980 tubal ligation PMH - Respiratory Hx Respiratory Disorders No PMH - Cardiovascular Hx Cardiovascular Disorders Yes Hx Abnormal EKG Yes: Hx asymptomatic bradycardia Exercise Tolerance Good PMH - Neuro Hx Neurological Disorders No PMH - GI Hx Gastrointestinal Disorders Yes Hx Gastroesophageal Reflux Yes: Controlled on Nexium Hx Hiatal Hernia Yes Hx Irritable Bowel Yes: with constipation. Controlled on Amitiza PMH - Hx Genitourinary Disorders Yes Hx Age of Menopause 50 Hx Bladder Problem Yes: OAB- on Tobiaz PMH - Endocrine Hx Endocrine Disorders Yes Hx Diabetes No Hx Thyroid Disease Yes: hypothyroid-on Synthroid PMH - Musculoskeletal Hx Musculoskeletal Disorders Yes Hx Arthritis Yes: Arthritis knees, shoulders, hands, generalized Hx Musculoskeletal Disease Yes: Restless leg syndrome controlled on Mirapex PMH - Psych Hx Psychiatric Problems Yes Hx Depression Yes: Controlled on Effexor PMH - Hematology/Oncology Hx Hematology/Oncology Yes Disorders Hx Anemia Yes: HGB 10.9 Hx Bruising Yes: Bruises very easily Premorbid Status: Detail (The patient was independent with ambulation prior to surgery. Pt. was Ind. with all I/ADL's (meal prep, laundry, self-care, etc.) prior to sx, except receiving some help from children & grandchildren with home mgmt/cleaning.) Social History: Detail (The patient lives alone in a 2 story house, but does not need to use 2nd floor. The patient's daughter will be staying with patient for the first 3 weeks. The patient's house enterance has 5 steps with one handrail. The patient's bathroom is equipped with a step-in tub with a seat, hand held shower head, and grab bars; and elevated toilet with a riser seat. 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 The patient has a standard walker, cane , 3 reachers, long handled shoe horn, and long handled sponge.) Precautions: [place], Fall, Other (WBAT on the R LE.) - Time With Patient Total Time Spent With Patient (Min): 20 Treatment Procedures: Detail (OT benito low. Session was concluded with pt. supine in bed, call light and bedside table within reach with all needs met.) Subjective Information - Subjective Information Per Patient Objective Data - Pain Pain Present: Yes (11/20 pain RLE) - Mental Status Patient Orientation: Oriented x3 - Visual Perception Appears within normal limits for therapeutic activities - ROM Within normal limits (Pt. lacking approx. 40 degrees L shd flex, and 20 degrees R wrist ext, but still WFL. All other BUE AROM WNL.) - Strength/Tone Within normal limits (LUE slightly weaker in general; pt. is R hand dominant. MMT: LUE shd flex 4-, abd 4, biceps 4+, triceps 4-. RUE all planes tested 4+/5. Pt. reported she "is weaker than when she was working" because hasn't been as active.) - Coordination Appears within normal limits for therapeutic activities - Bed Mobility Independent (supine to sit EOB) - Transfers Independent (sit<>stand) - Balance Balance Sitting: Good Balance Standing: Fair - Sensation Intact (PT. reports no numbness/tingling BUE.) - ADL's/IADL's Detail (Educ. provided in adaptive dressing techniques and use of AE if needed. Pt. demo ability to dress TB Ind. (undergarments, top, elastic waist pants, & socks) while seated EOB without need for AE. Pt. reported she has no concerns/ questions regarding ability to participate in I/ADL's after returning home.) Therapy Assessment - Therapy Assessment Detail (In-pt. OT services not recommended at this time. Pt. demo. awareness of use of AE and modified dressing techniques. Pt. has a positive support system and assistance PRN at home. Per pt report, she has a good environmental set-up and AE if needed. Pt. may benefit from out-pt. therapy services in the future to improve LUE strength and ROM.) Patient Education - Patient Education Teaching Topic: Equipment Use Response: Return Demonstration, Verbalize Understanding Teaching Method: Discussion, Demonstration Teaching Recipient: Patient Barriers To Learning: None Problem List - Problem List Physical Therapy Problem List: Detail (1) Decrease R knee AROM and strength as to be expected following surgery 2) Nonambulatory on stairs) Goals - Goals Physical Therapy Goals: 1) The patient will amublate on stairs using proper technique with supervision for safety (Goal Met) Prognosis - Prognosis Good Plan - Plan Physical Therapy Plan: All inpatient PT goals have been completed. The patient is to receive Home PT services. Occupational Therapy Plan: D/C from in-pt. OT services. Educ. was provided to call rehab dept. if Q's arise after returning home.
--- NOTE | 2018-02-27 20:14 | Discharge Summary ---
DATE OF ADMISSION: 02/26/2018 DATE OF DISCHARGE: 02/27/2018 DATE OF SURGERY: 02/26/2018 HISTORY: Che is a delightful 67-year-old female who presents with end-stage arthrosis of her right knee. She was admitted after right total knee arthroplasty. Postoperatively she did well. Her hospital course was unremarkable. She was independent the first postoperative day. Her discharge hemoglobin was 9.4. She did not require transfusion. DISCHARGE INSTRUCTIONS: The plan is to discharge her to home in the care of her family. She will be given Xarelto and Aspirin for DVT prophylaxis and [place] for pain. Sutures will be removed by the Visiting Nurse in two weeks and she will follow-up in my office in four weeks. FINAL DIAGNOSIS/PRIMARY DIAGNOSIS: END-STAGE ARTHROSIS OF THE RIGHT KNEE. SECONDARY DIAGNOSIS: OPERATIVE BLOOD LOSS ANEMIA. OPERATIONS AND PROCEDURES: CEMENTED RIGHT TOTAL KNEE ARTHROPLASTY. DISCHARGE CONDITION: GOOD. JOB NUMBER: [id number] MTDD
== END 2018-02-27 15:50 | disposition home health service (06) ==
LOC: SUR 09:56 → MEDSURG 16:42 → SUR 02-27 15:50
PROVIDERS: ATTEND Orthopaedic Surgery
DX: M17.11 Unilateral primary osteoarthritis, right knee (principal); E78.00 Pure hypercholesterolemia, unspecified; G25.81 Restless legs syndrome; K21.9 Gastro-esophageal reflux disease without esophagitis; K44.9 Diaphragmatic hernia without obstruction or gangrene; E03.9 Hypothyroidism, unspecified
CPT/HCPCS: 27447; 01402; 85018; 85014; 80048; 86900; 86901; 86850; J3370; J1170; J0690 ×2; J3490 ×3; G8978; G8979; G8980; C1776; J3480; J7060